=== PATIENT | female | born 1970 | race Caucasian/White ===

== ENCOUNTER 2018-01-12 09:29 | Emergency (ER) | payer BC ==
[~2018-01-12] VITALS: Ht 182.9 cm; Wt 77.1 kg
[~2018-01-12 09:29] MED LIST: CIPROFLOXACIN500 M1 PO; CLONAZEPAM0.25 MG PO; LEVSIN0.125 MG PO; PAXIL10 MG PO
[2018-01-12] MEDS ORDERED: HYDROCODONE-AP1 EAC6 PO (10:49)
[2018-01-12 11:11] VITALS: BP 142/98
== END 2018-01-12 11:11 | disposition home or self-care (01) ==
LOC: ER 09:29
DX: R22.0 Localized swelling, mass and lump, head (principal); F17.210 Nicotine dependence, cigarettes, uncomplicated; F41.9 Anxiety disorder, unspecified; F32.9 Major depressive disorder, single episode, unspecified